=== PATIENT | female | born 1980 | race Caucasian/White ===

== ENCOUNTER 2017-11-15 17:27 | Emergency (ER) | payer OTHER ==
--- OUTSIDE RECORDS SUMMARY | 2017-11-15 17:37 | XMS REPORT ---
:1980 External Reference #:[id number] Author Organization hospitality aide [facility] Address [address] [place] [address] Phone [phone] Care Team Providers Name Role Phone Silva Reyes MD Care Team Information Components Engineer Unavailable Payers Type Date Identification Numbers Payment Provider Subscriber Commercial Policy Number: [id number] Brayan Villagomez PayID: [id number] [address] [place] [address] Problems Description No Information Family History Date Family Member(s) Problem(s) Comments Father due to Liver Cancer () Father Diabetes, Type 2 Father Cirrhosis Mother A&W First Brother A&W Paternal Grandfather due to Stroke () Paternal Grandfather Diabetes, Type 2 Paternal Grandmother Atrial Fibrillation Maternal Grandfather due to Old Age () Maternal Grandfather due to Diabetes () Maternal Grandmother due to Heart Disease () Social History Type Date Description Comments Education Highest level completed, Doctorate Marital Status Single Lives With Alone Diet Healthy, Well Balanced Pets 3 cats Pets 1 dog 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 Cigarette Use Never Smoked Cigarettes ETOH Use Denies alcohol use Smoking Patient has never smoked Recreational Drug Use Denies Drug Use Daily Caffeine Consumes on average 1 soda per day Exercise Type/Frequency Exercises rarely Seat Belt/Car Seat Always uses seat belt Currently Active Patient is currently not sexually active STD's No STD History Allergies, Adverse Reactions, Alerts Date Description Reaction Status Severity Comments 05/28/2017 NKDA active Medications Medication Date Status Form Strength Qnty SIG Indications Ordering Provider Ambien Active Unknown 000 Sumatriptan Active Solution 6mg/0.5ML prn Unknown Succinate 000 Progesterone Active Capsules 100mg take 1 Unknown Micronized 000 capsule at bedtime Levothyroxine 0 Active Tablets 112mcg 1 by Unknown Sodium 000 mouth every day Synthroid /00/0 Hx Unknown 000 - 018 Hydrocodone 0 Hx Unknown Bitartrate/Aceta 000 - minophen 018 Zoloft /0 Hx Unknown 000 - 018 Synthroid 0 Hx Tablets 88mcg 1 by Unknown 000 - mouth every day 018 Medications Administered in Office Medication Date Status Form Strength Qnty SIG Indications Ordering Provider PT SCRN Tbco Administered Injection Phaelon Id as Non User 018 MD Amy Vital Signs Date Vital Result Comment 10/29/2017 BP Systolic 158 mmHg BP Diastolic 102 mmHg Height 64.5 inches 5'4.50" Weight 226.00 lb BMI (Body Mass Index) 38.2 kg/m2 Last Menstrual Period 1024449 0 05/23/2017 BP Systolic 120 mmHg BP Diastolic 80 mmHg Height 64.25 inches 5'4.25" Weight 217.00 lb BMI (Body Mass Index) 37.0 kg/m2 Last Menstrual Period 9785455 0 Parity 0 Results Description No Information Procedures Date CPT Code Description Status 05/23/2017 56324 Injection Intramuscular Or Subcutaneous Completed 05/05/2014 Mammogram Completed Encounters Type Date Location Provider CPT E/M Dx Office Visit 10/29/2017 2:00p [facility] [place] [address] O09.91 Office Visit 05/23/2017 11:44a [facility] Office Stephani Gill CNM 23346 Z31.69 Office Visit 05/23/2017 3:20p [facility] Office Stephani Gill CNM 44271 Z23 Z31.69 Plan of Care Future Appointment(s):12/16/2017 1:30 pm - Ultrasounds at [facility] [id number] 2:00 pm - Adelina Min CNM at [facility] Cnpege8105/23/2017 - Stephani Gill [id number] Encounter for [id number] Encounter for oth general coun and advice on procreationComments:We discussed a consult with one of our physicians with sono to monitor cervical fibroid. At this time you have declined based on exam today but may consider in future. You have imaging from your other providers ([facility] and [facility]) from within 6 months and will have further imaging with Dr Sousa.I encourage you to consider consulting with one of our physicians regarding your previous uterine surgeries and the advisability of a . You have declined this for now but may consider prior to IVF/IUI. On exam I do not see that your cervix is in an unusual position as you were worried about.We will request your records from [facility].You have received a flu shot todayReturn for any problems or if you would like to see one of our physicians as above.
[2017-11-15 18:40] LABS: ABS Basophils 0.1 10^3/ul (0-0.2); ABS Eosinophils 0.1 10^3/ul (0-0.6); ABS Lymphocytes 1.9 10^3/ul (1.0-4.8); ABS Monocytes 0.8 10^3/ul (0-0.8); ABS Neutrophils 8.1 10^3/ul (1.5-7.7); ABS Nucleated RBC 0 10^3/ul; Eosinophil % 0.9 % (0-6); Hematocrit 35 % (35-47); Hemoglobin 11.7 g/dl (12.0-16.0); Mean Corpuscular HGB Conc 34 g/dl (31-36); Mean Corpuscular Hemoglobin 30 pg (27-31); Mean Corpuscular Volume 88 fL (80-97); Mean Platelet Volume 9.3 um3 (7.4-10.4); Nucleated Red Blood Cells % 0.1; Platelet Count 319 10^3/ul (150-450); Red Blood Count 3.97 10^6/ul (4.00-5.40); Red Cell Distribution Width 14 % (10.5-15); White Blood Count 10.9 10^3/ul (3.5-10.8)
[2017-11-15 18:49] LABS: EGFR Non-African American 96.8 (>60)
[2017-11-15 19:05] LABS: Urine Appearance Clear; Urine Blood 3+ (Negative); Urine Color Yellow; Urine Ketones Negative (Negative); Urine Protein Negative (Negative); Urine Red Blood Cell 3+(>10/hpf) (Absent); Urine Specific Gravity 1.019 (1.010-1.030); Urine Urobilinogen Negative (Negative); Urine White Blood Cell Trace(0-5/hpf) (Absent)
--- NOTE | 2017-11-15 19:13 | RAD ---
HISTORY: Vaginal bleeding COMPARISONS: Pelvic ultrasound dated November 15, 2017 TECHNIQUE: Multiple transverse and longitudinal ultrasound images were obtained of the pelvis using grayscale, color flow, spectral and M-mode sonographic imaging. FINDINGS: UTERUS: The uterus is normal in shape, size, contour, and echotexture. GESTATION: There is a single live intrauterine gestation. The crown-rump length measures 1 cm yielding a gestational age of 7 weeks and 1 day. heart rate measures 125 bpm. The mean gestational sac diameter measures 2.1 centimeters yielding a gestational age of 7 weeks and 1 day. There is a subchorionic hemorrhage surrounding approximately three quarters of the gestational sac. There is at least one uterine fibroid identified measuring 5.5 x 7.8 x 7.5 CUL-DE-SAC: There is no free fluid within the cul-de-sac. Neither ovary is visualized. IMPRESSION: 1. Single live intrauterine gestation with a crown-rump length yielding a gestational age of 7 weeks and 1 day. 2. Subchorionic hemorrhage surrounding approximately three quarters of the gestational sac. 3. At least one uterine fibroid is visualized measuring 7.8 cm in greatest dimension.
--- NOTE | 2017-11-15 19:16 | ED ---
- HPI Summary HPI Summary: Patient 6 weeks complains of sudden onset vaginal bleeding involving clots today. Patient is , being followed by a [facility] fertility clinic in [place], and has had no appointment with [facility] yet. Scheduled for appointment at 12 weeks at [place] [facility]. Patient was seen by fertility clinic today with ultrasound which confirmed small subchorionic hemorrhage. Bleeding only spotty at time of ultrasound, now heavy. Patient also complains of lower abdominal cramping left side worse than right. History of 3 fibroids 5 -7 cm. Denies fever, cough, sore throat, CP, SOB, N/V/D, change in urine or BM. Medical history is hypothyroid, fibroids with history of heavy bleeding and transfusions. - History of Current Complaint Chief Complaint: EDOBProblems Stated Complaint: VAGINAL BLEEDING/6 WKS PREG Time Seen by Provider: 11/15/17 17:58 Hx Obtained From: Patient Chief Complaint: Pain, Vaginal Bleeding Onset/Duration: Started Hours Ago Timing: Constant Severity: Moderate Current Severity: Moderate Pain Intensity: 4 Location of Pain: Left Side, Right Side, Suprapubic Character: Cramping Associated Signs and Symptoms: Positive: Vaginal Bleeding or Discharge - Allergies/Home Medications Allergies/Adverse Reactions: Allergies Allergy/AdvReac Type Severity Reaction Status Date / Time No Known Allergies Allergy Verified 11/15/17 18:06 Home Medications: Home Medications NK [No Home Medications Reported] 11/15/17 [History Confirmed 11/15/17] PMH/Surg Hx/FS Hx/Imm Hx Endocrine/Hematology History: Denies: Hx Anticoagulant Therapy History: Denies: Hx Dialysis Neurological History: Denies: Hx CVA Infectious Disease History: No Infectious Disease History: Denies: Traveled Outside the [place] in Last 30 Days - Social History Alcohol Use: None Substance Use Type: Reports: None Smoking Status (MU): Former Smoker Review of Systems Constitutional: Negative Eyes: Negative ENT: Negative Cardiovascular: Negative Respiratory: Negative Positive: Abdominal Pain Positive: other Musculoskeletal: Negative Skin: Negative Neurological: Negative Psychological: Normal All Other Systems Reviewed And Are Negative: Yes Physical Exam - Summary Physical Exam Summary: Tenderness to palpation along the lower abdomen bilaterally. No edema to hands or feet. - Physical Exam Triage Information Reviewed: Yes Vital Signs Reviewed: Yes Appearance: Positive: Well-Appearing Skin: Positive: Warm Head/Face: Positive: Normal Head/Face Inspection Eyes: Positive: Normal Neck: Positive: Supple Respiratory/Lung Sounds: Positive: Clear to Auscultation Cardiovascular: Positive: Normal Abdomen Description: Positive: Other: Musculoskeletal: Positive: Normal Neurological: Positive: Normal Psychiatric: Positive: Normal AVPU Assessment: Alert - [place] Coma Scale Eye: 4 - Spontaneous Motor: 6 - Obeys Commands Verbal: 5 - Oriented Coma Scale Total: 15 Diagnostics - Vital Signs Vital Signs Temp Pulse Resp BP Pulse Ox 11/15/17 18:22 74 142/97 99 11/15/17 18:20 78 151/98 99 11/15/17 18:17 132/81 11/15/17 18:00 77 99 11/15/17 17:53 84 99 11/15/17 17:30 97.7 F 80 18 145/75 100 - Laboratory Lab Results: Lab Results 11/15/17 11/15/17 11/15/17 Range/Units 18:13 18:13 18:13 WBC 10.9 H (3.5-10.8) 10^3/ul RBC 3.97 L (4.00-5.40) 10^6/ul Hgb 11.7 L (12.0-16.0) g/dl Hct 35 (35-47) % MCV 88 (80-97) fL MCH 30 (27-31) pg MCHC 34 (31-36) g/dl RDW 14 (10.5-15) % Plt Count 319 (150-450) 10^3/ul MPV 9.3 (7.4-10.4) um3 Neut % (Auto) 73.9 (38-83) % Lymph % (Auto) 17.0 L (25-47) % [place] % (Auto) 7.4 H (0-7) % Eos % (Auto) 0.9 (0-6) % Baso % (Auto) 0.8 (0-2) % Absolute Neuts (auto) 8.1 H (1.5-7.7) 10^3/ul Absolute Lymphs (auto) 1.9 (1.0-4.8) 10^3/ul Absolute Monos (auto) 0.8 (0-0.8) 10^3/ul Absolute Eos (auto) 0.1 (0-0.6) 10^3/ul Absolute Basos (auto) 0.1 (0-0.2) 10^3/ul Absolute Nucleated RBC 0 10^3/ul Nucleated RBC % 0.1 Sodium 136 (135-145) mmol/L Potassium 3.6 (3.5-5.0) mmol/L Chloride 105 (101-111) mmol/L Carbon Dioxide 24 (22-32) mmol/L Anion Gap 7 (2-11) mmol/L BUN 9 (6-24) mg/dL Creatinine 0.68 (0.51-0.95) mg/dL Est GFR ( Amer) 117.2 (>60) Est GFR (Non-Af Amer) 96.8 (>60) BUN/Creatinine Ratio 13.2 (8-20) Glucose 96 (70-100) mg/dL Calcium 8.7 (8.6-10.3) mg/dL Total Bilirubin 0.10 L (0.2-1.0) mg/dL AST 12 L (13-39) U/L ALT 8 (7-52) U/L Alkaline Phosphatase 76 (34-104) U/L Total Protein 6.4 (6.4-8.9) g/dL Albumin 3.6 (3.2-5.2) g/dL Globulin 2.8 (2-4) g/dL Albumin/Globulin Ratio 1.3 (1-3) Beta HCG, Quant 31399.00 mIU/mL Urine Color Urine Appearance Urine pH (5-9) Ur Specific [place] (1.010-1.030) Urine Protein (Negative) Urine Ketones (Negative) Urine Blood (Negative) Urine Nitrate (Negative) Urine Bilirubin (Negative) Urine Urobilinogen (Negative) Ur Leukocyte Esterase (Negative) Urine WBC (Auto) (Absent) Urine RBC (Auto) (Absent) Urine Bacteria (Absent) Urine Glucose (Negative) Blood Type O Positive 11/15/17 Range/Units 18:36 WBC (3.5-10.8) 10^3/ul RBC (4.00-5.40) 10^6/ul Hgb (12.0-16.0) g/dl Hct (35-47) % MCV (80-97) fL MCH (27-31) pg MCHC (31-36) g/dl RDW (10.5-15) % Plt Count (150-450) 10^3/ul MPV (7.4-10.4) um3 Neut % (Auto) (38-83) % Lymph % (Auto) (25-47) % [place] % (Auto) (0-7) % Eos % (Auto) (0-6) % Baso % (Auto) (0-2) % Absolute Neuts (auto) (1.5-7.7) 10^3/ul Absolute Lymphs (auto) (1.0-4.8) 10^3/ul Absolute Monos (auto) (0-0.8) 10^3/ul Absolute Eos (auto) (0-0.6) 10^3/ul Absolute Basos (auto) (0-0.2) 10^3/ul Absolute Nucleated RBC 10^3/ul Nucleated RBC % Sodium (135-145) mmol/L Potassium (3.5-5.0) mmol/L Chloride (101-111) mmol/L Carbon Dioxide (22-32) mmol/L Anion Gap (2-11) mmol/L BUN (6-24) mg/dL Creatinine (0.51-0.95) mg/dL Est GFR ( Amer) (>60) Est GFR (Non-Af Amer) (>60) BUN/Creatinine Ratio (8-20) Glucose (70-100) mg/dL Calcium (8.6-10.3) mg/dL Total Bilirubin (0.2-1.0) mg/dL AST (13-39) U/L ALT (7-52) U/L Alkaline Phosphatase (34-104) U/L Total Protein (6.4-8.9) g/dL Albumin (3.2-5.2) g/dL Globulin (2-4) g/dL Albumin/Globulin Ratio (1-3) Beta HCG, Quant mIU/mL Urine Color Yellow Urine Appearance Clear Urine pH 7.0 (5-9) Ur Specific [place] 1.019 (1.010-1.030) Urine Protein Negative (Negative) Urine Ketones Negative (Negative) Urine Blood 3+ A (Negative) Urine Nitrate Negative (Negative) Urine Bilirubin Negative (Negative) Urine Urobilinogen Negative (Negative) Ur Leukocyte Esterase Negative (Negative) Urine WBC (Auto) Trace(0-5/hpf) (Absent) Urine RBC (Auto) 3+(>10/hpf) A (Absent) Urine Bacteria Absent (Absent) Urine Glucose Negative (Negative) Blood Type Result Diagrams: 11/15/17 18:13 11/15/17 18:13 Lab Statement: Any lab studies that have been ordered have been reviewed, and results considered in the medical decision making process. - Ultrasound No standard instances Ultrasound Interpretation: Positive (See Comments) - Subchorionic hemorrhage around three quarters of gestational sac. Live intrauterine . Ultrasound Interpretation Completed By: Radiologist Course/Dx - Course Course Of Treatment: Patient 6 weeks complains of sudden onset vaginal bleeding involving clots today. Patient is , being followed by a [facility] fertility clinic in [place], and has had no appointment with [facility] yet. Scheduled for appointment at 12 weeks at [facility]. Patient was seen by fertility clinic today with ultrasound which confirmed small subchorionic hemorrhage. Bleeding only spotty at time of ultrasound, now heavy. Patient also complains of lower abdominal cramping left side worse than right. History of 3 fibroids 5-7 cm. Denies fever, cough, sore throat, CP, SOB, N/V/D, change in urine or BM. Medical history is hypothyroid, fibroids with history of heavy bleeding and transfusions. PE: Tenderness to palpation along the lower abdomen bilaterally. No edema to hands or feet. Vital signs within normal limits. Unstable. Labs unremarkable. Discussed patient with Dr. Flood pet adoption counselor for OB who stated there was nothing that could be done for patient at this time. Still a viable with higher risk of miscarriage. Follow-up with fertility clinic on Friday, return for heavy bleeding. Patient 6 weeks complains of sudden onset vaginal bleeding involving clots today. Patient is , being followed by a fertility clinic, and has had no appointment with [facility] yet. Scheduled for appointment at 12 weeks at [facility]. Patient was seen by fertility clinic today with ultrasound which confirmed small subchorionic hemorrhage. Bleeding only spotty at time of ultrasound, now heavy. Patient also complains of lower abdominal cramping left side worse than right. History of 3 fibroids 5-7 cm. Denies fever, cough, sore throat, CP, SOB, N/V/D, change in urine or BM. Medical history is hypothyroid, fibroids with history of heavy bleeding and transfusions. PE: Tenderness to palpation along the lower abdomen bilaterally. No edema to hands or feet. - Diagnoses Provider Diagnoses: Vaginal bleeding affecting early Discharge - Sign-Out/Discharge Documenting (check all that apply): Patient Departure - Discharge Plan Condition: Stable Disposition: HOME Patient Education Materials: Threatened Miscarriage (ED) Referrals: No Primary Care Phys,NOPCP [Primary Care Provider] - Additional Instructions: Follow-up with your fertility clinic on Friday. Return to the ED for heavy bleeding, or any new or worsening symptoms. - Billing Disposition and Condition Condition: STABLE Disposition: Home
[2017-11-15 20:03] VITALS: BP 151/97
--- NOTE | 2017-11-17 06:53 | PN ---
Progress Note - Progress Note Date of Service: 11/17/17 Note: Patient's urine culture grew Escherichia coli 25-50,000. Not a significant cultures will not treat at this time. Will wait for final culture.
--- NOTE | 2017-11-18 08:44 | ED ---
Progress - Progress Note Progress Note: Patient's final urine culture reveals 25-50,000 Escherichia coli. She was seen for threatened miscarriage with vaginal bleeding and a subchorionic hemorrhage although was still viable. She denies urinary symptoms such as burning, pressure, flank pain, fevers or chills. She has a baseline frequency due to that has not changed. She does not believe she has an active urinary tract infection. We discussed that she is taking steroids for her as she is going to the [place] [facility]. She will follow-up in one week to repeat a UA and monitor her symptoms in the event that she needs to start an antibiotic however we've discussed her options today and decided to avoid antibiotics today (no bacteria, leukocytes or nitrates on U/A, CBC unremarkable for acute infection, no sx, etc). She will continue to transition to [facility] from [facility] for convenience of follow-up (ie. U/S, labs, etc). She is aware she may release her records through medical records as needed however she said [facility] can access her records as of today. She is also aware if she develops heavier bleeding, pain, fever, chills she will return to the emergency department. At this time, she continues to have same flow of vaginal bleeding that she's had since this started. No new complaints. Course/Dx - Course Course Of Treatment: Patient 6 weeks complains of sudden onset vaginal bleeding involving clots today. Patient is , being followed by a [facility] fertility clinic in [place], and has had no appointment with [facility] yet. Scheduled for appointment at 12 weeks at [facility]. Patient was seen by fertility clinic today with ultrasound which confirmed small subchorionic hemorrhage. Bleeding only spotty at time of ultrasound, now heavy. Patient also complains of lower abdominal cramping left side worse than right. History of 3 fibroids 5-7 cm. Denies fever, cough, sore throat, CP, SOB, N/V/D, change in urine or BM. Medical history is hypothyroid, fibroids with history of heavy bleeding and transfusions. PE: Tenderness to palpation along the lower abdomen bilaterally. No edema to hands or feet. Vital signs within normal limits. Unstable. Labs unremarkable. Discussed patient with Dr. Flood hotel yardperson for OB who stated there was nothing that could be done for patient at this time. Still a viable with higher risk of miscarriage. Follow-up with fertility clinic on Friday, return for heavy bleeding. Patient 6 weeks complains of sudden onset vaginal bleeding involving clots today. Patient is , being followed by a fertility clinic, and has had no appointment with [facility] yet. Scheduled for appointment at 12 weeks at [facility]. Patient was seen by fertility clinic today with ultrasound which confirmed small subchorionic hemorrhage. Bleeding only spotty at time of ultrasound, now heavy. Patient also complains of lower abdominal cramping left side worse than right. History of 3 fibroids 5-7 cm. Denies fever, cough, sore throat, CP, SOB, N/V/D, change in urine or BM. Medical history is hypothyroid, fibroids with history of heavy bleeding and transfusions. PE: Tenderness to palpation along the lower abdomen bilaterally. No edema to hands or feet. - Diagnoses Provider Diagnoses: Vaginal bleeding affecting early Discharge - Sign-Out/Discharge Documenting (check all that apply): Post-Discharge Follow Up - Discharge Plan Condition: Stable Disposition: HOME Patient Education Materials: Threatened Miscarriage (ED) Referrals: No Primary Care Phys,NOPCP [Primary Care Provider] - Additional Instructions: Follow-up with your fertility clinic on Friday. Return to the ED for heavy bleeding, or any new or worsening symptoms. - Billing Disposition and Condition Condition: STABLE Disposition: Home
== END 2017-11-15 20:35 | disposition home or self-care (01) ==
LOC: ED 17:27
DX: O46.91 Antepartum hemorrhage, unspecified, first trimester (principal); Z3A.01 Less than 8 weeks gestation of pregnancy; Z87.891 Personal history of nicotine dependence
CPT/HCPCS: 36415; 76817; 80053; 81003; 81015; 84702; 85025; 86900; 86901; 87077; 87086; 87186; 99283

== ENCOUNTER 2017-12-04 20:44 | Emergency (ER) | payer OTHER ==
--- OUTSIDE RECORDS SUMMARY | 2017-12-04 20:55 | XMS REPORT ---
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 Cigarette Use Never [...] Strength Qnty SIG Indications Ordering Provider Ambien / Active Unknown 0000 Sumatriptan / Active Solution 6mg/0.5ML prn Unknown Succinate 0000 Progesterone / Active Capsules 100mg take 1 Unknown Micronized 0000 capsule at bedtime Levothyroxine / Active Tablets 112mcg 1 by Unknown Sodium 0000 mouth every day Macrobid 11/18/ Hx Capsules 100mg 14caps 1 by Adelina 2018 - mouth Min, 11/26/ twice a CNM 2017 Synthroid /00/ Hx Unknown - 2017 Hydrocodone / Hx Unknown Bitartrate/Aceta 0000 - minophen 2017 Zoloft / Hx Unknown - 2017 Synthroid / Hx Tablets 88mcg 1 by Unknown 0000 - mouth 10/13/ every day 2017 Medications Administered in Office Medication Date Status Form Strength Qnty SIG Indications Ordering Provider PT SCRN Tbco Administered Injection Paola Id as Non User 018 JULITO Dockery PT SCRN Tbco Administered Injection Silva Id as Non User 018 MD Amy Vital Signs Date Vital Result Comment 11/27/2017 BP Systolic 112 mmHg BP Diastolic 72 mmHg Height 64.5 inches 5'4.50" Weight 233.00 lb BMI (Body Mass Index) 39.4 kg/m2 Last Menstrual Period 1304241 1 Parity 0 10/29/2017 BP Systolic 158 mmHg BP Diastolic 102 mmHg Height 64.5 inches 5'4.50" Weight 226.00 lb BMI (Body Mass Index) 38.2 kg/m2 Last Menstrual Period 1754276 0 05/23/2017 BP Systolic 120 mmHg BP Diastolic 80 mmHg Height 64.25 inches 5'4.25" Weight 217.00 lb BMI (Body Mass Index) 37.0 kg/m2 Last Menstrual Period 4109962 0 Parity 0 Results Description No Information Procedures Date CPT Code Description Status 11/27/2017 16852 OB Ultrasound First Trimester Completed 05/23/2017 12920 Injection Intramuscular Or Subcutaneous Completed 05/05/2014 Mammogram Completed Encounters Type Date Location Provider CPT E/M Dx Office Visit 11/27/2017 2:20p [facility] Paola Dockery CNM 25789 O20.8 Office Visit 10/29/2017 2:00p [place] [address] O09.91 Office Visit 05/23/2017 11:44a [facility] Stephani Gill CNM 22065 Z31.69 Office Visit 05/23/2017 3:20p [facility] Stephani Gill CNM 74682 Z23 Z31.69 Plan of Care Future Appointment(s):12/09/2017 3:30 pm - Laboratory at [facility]12/16/2017 1:30 pm - Ultrasounds at [facility]12/16/2017 2:00 pm - Adelina Min CNM at [facility]
[2017-12-04] MEDS ORDERED: Morphine INJ* 2 MG/ML 1 ML SYRINGE (TWO MG - NEW SYRINGE VERSION) IV ONE (23:01)
[2017-12-04] MEDS ORDERED: Metoclopramide IV* 5 MG/ML 2 ML VIAL IV SLOW PU ONE (23:02)
--- NOTE | 2017-12-04 23:05 | ED ---
Abdominal Pain/Female - HPI Summary HPI Summary: This is clare Alvarez documenting for attending Elodia Reyes MD. This patient is a 52 year old F presenting to ED with a chief complaint of suprapubic abdominal pain since yesterday. This is the patients 1st and is currently 9 weeks. The CC is described as constant, non-radiating, and worsened since onset. The patient rates the pain 8/10 in severity. Symptoms aggravated by nothing. Symptoms alleviated by nothing. Patient reports hematuria for 3 weeks (was heavy but now is about 4-5 pads a day). Patient denies fever. US done at fertility clinic in [place] yesterday and fetus is fine. She sees the [facility]. She had an I.O.I. done. PMHx of fibroids ( had multiple surgeries in the past to have them removed). - History of Current Complaint Chief Complaint: EDOBProblems Stated Complaint: 9WKS PREG ABD PAIN Time Seen by Provider: 12/04/17 22:38 Hx Obtained From: Patient Onset/Duration: Sudden Onset, Lasting Days - since yesterday, Still Present, Worse Since - onset Timing: Constant Severity Initially: Severe Severity Currently: Severe Pain Intensity: 8 Pain Scale Used: 0-10 Numeric Location: Suprapubic Radiates: No Aggravating Factor(s): Nothing Alleviating Factor(s): Nothing Associated Signs and Symptoms: Positive: Other: - Patient reports hematuria for 3 weeks (was heavy but now is about 4-5 pads a day). Patient denies fever. Allergies/Adverse Reactions: Allergies Allergy/AdvReac Type Severity Reaction Status Date / Time No Known Allergies Allergy Verified 11/15/17 18:06 Home Medications: Home Medications Levothyroxine TAB* [Synthroid TAB*] 112 mcg PO DAILY 12/05/17 [History Confirmed 12/05/17] Progesterone SUPP (NF) [Endometrin SUPP (NF)] 100 mg SC BID 12/05/17 [History Confirmed 12/05/17] predniSONE [Prednisone 5 MG TAB] 5 mg PO DAILY 12/05/17 [History Confirmed 12/05] PMH/Surg Hx/FS Hx/Imm Hx Endocrine/Hematology History: Denies: Hx Anticoagulant Therapy History: Denies: Hx Dialysis Neurological History: Denies: Hx CVA Infectious Disease History: Yes Infectious Disease History: Denies: Traveled Outside the [place] in Last 30 Days - Family History Known Family History: Positive: Hypertension, Diabetes - Social History Alcohol Use: None Substance Use Type: Reports: None Smoking Status (MU): Former Smoker Review of Systems Negative: Fever Positive: Abdominal Pain - suprapubic abdominal pain Positive: hematuria - Patient reports hematuria for 3 weeks (was heavy but now is about 4-5 pads a day). All Other Systems Reviewed And Are Negative: Yes Physical Exam - Summary Physical Exam Summary: VITAL SIGNS: Reviewed. GENERAL: Patient is a well-developed and nourished FEMALE who is lying comfortable in the stretcher. Patient is not in any acute respiratory distress. HEAD AND FACE: No signs of trauma. No ecchymosis, hematomas or skull depressions. No sinus tenderness. EYES: PERRLA, EOMI x 2, No injected conjunctiva, no nystagmus. EARS: Hearing grossly intact. Ear canals and tympanic membranes are within normal limits. MOUTH: Oropharynx within normal limits. NECK: Supple, trachea is midline, no adenopathy, no JVD, no carotid bruit, no c- spine tenderness, neck with full ROM. CHEST: Symmetric, no tenderness at palpation LUNGS: Clear to auscultation bilaterally. No wheezing or crackles. CVS: Regular rate and rhythm, S1 and S2 present, no murmurs or gallops appreciated. ABDOMEN: Soft, suprapubic tenderness. No signs of distention. No rebound no guarding, and no masses palpated. Bowel sounds are normal. EXTREMITIES: FROM in all major joints, no edema, no cyanosis or clubbing. NEURO: Alert and oriented x 3. No acute neurological deficits. Speech is normal and follows commands. SKIN: Dry and warm Triage Information Reviewed: Yes Vital Signs On Initial Exam: Initial Vitals Temp Pulse Resp BP Pulse Ox 98.3 F 94 18 149/106 99 12/04/17 20:44 12/04/17 20:44 12/04/17 20:44 12/04/17 20:44 12/04/17 20:44 Vital Signs Reviewed: Yes Diagnostics - Vital Signs Vital Signs Temp Pulse Resp BP Pulse Ox 12/04/17 20:44 98.3 F 94 18 149/106 99 - Laboratory Result Diagrams: 12/04/17 23:10 12/04/17 23:10 Lab Statement: Any lab studies that have been ordered have been reviewed, and results considered in the medical decision making process. - Ultrasound No standard instances Ultrasound Interpretation Completed By: Radiologist - US transvaginal reveals 1. There is a single living intrauterine of sonographic gestational age 9 weeks 3 days, KATIE July [birth year] 2018. 2. No visible subchorionic hemorrhage. 3. There are multiple intramural uterine fibroids presents, in the lower uterine segment measuring a maximum of 5.8 cm, posterior body of the uterus measuring of 5.7 cm and in the right body of uterus measuring a maximum of 6.2 cm. ED physician has reviewed this radiology report. Re-Evaluation - Re-Evaluation First Eval Re-Evaluation Time: 01:16 Comment: Discussed results with the patient. Abdominal Pain Fem Course/Dx - Course Course Of Treatment: This patient is a 37 yo female with hx of fibroids. A0. She is 9 weeks . She comes in the ED with abdominal pain since a couple days ago that has worsened over time. She was told by her PCP to come to the ED. On the physical exam, she had epigastric tenderness. The US showed she was 9 weeks . I discussed the case with Dr. Reyes who said she can be discharged home with pain medications. She was discharged with Percocet. Patient understands and agrees. - Diagnoses Provider Diagnoses: Uterine fibroid in - Provider Notifications Discussed Care Of Patient With: Silva Reyes Time Discussed With Above Provider: 01:18 Instructed by Provider To: Other - Consulted Dr. Reyes who says that the pain could be secondary to the degeneration change in the fibroids. As long as the baby is okay, then the patient can be D/C with instructions to follow up with OB. Discharge - Sign-Out/Discharge Documenting (check all that apply): Patient Departure - Discharge Plan Condition: Stable Disposition: HOME Prescriptions: oxyCODONE/Acetamin 5/325 MG* [Percocet 5/325 TAB*] 1 tab PO Q6H PRN #14 tab MDD 4 PRN Reason: Pain Patient Education Materials: Abdominal Pain in (ED) Referrals: Silva Reyes MD [Medical Doctor] - (Follow up with Dr. Reyes in 1-2 days.) Additional Instructions: RETURN TO THE EMERGENCY DEPARTMENT FOR CHANGING OR WORSENING SYMPTOMS.
[2017-12-04 23:20] LABS: ABS Basophils 0.1 10^3/ul (0-0.2); ABS Eosinophils 0.1 10^3/ul (0-0.6); ABS Lymphocytes 2.3 10^3/ul (1.0-4.8); ABS Monocytes 1.1 10^3/ul (0-0.8); ABS Neutrophils 11.1 10^3/ul (1.5-7.7); ABS Nucleated RBC 0 10^3/ul; Eosinophil % 0.4 % (0-6); Hematocrit 34 % (35-47); Hemoglobin 11.1 g/dl (12.0-16.0); Lymphocyte % 15.5 % (25-47); Mean Corpuscular HGB Conc 33 g/dl (31-36); Mean Corpuscular Hemoglobin 28 pg (27-31); Mean Corpuscular Volume 86 fL (80-97); Mean Platelet Volume 8.5 um3 (7.4-10.4); Nucleated Red Blood Cells % 0.1; Platelet Count 367 10^3/ul (150-450); Red Blood Count 3.91 10^6/ul (4.00-5.40); Red Cell Distribution Width 14 % (10.5-15); White Blood Count 14.6 10^3/ul (3.5-10.8)
[2017-12-04 23:37] LABS: EGFR Non-African American 118.7 (>60)
[2017-12-05 02:04] VITALS: BP 142/75
--- NOTE | 2017-12-05 07:45 | RAD ---
INDICATION: , vaginal bleeding. COMPARISON: Comparison is made with prior study from November 15, 2017. TECHNIQUE: Multiple real-time transvaginal images of the pelvis were obtained. FINDINGS: This exam demonstrates an early intrauterine . A yolk sac and fetus are visualized. The heart rate was 170 beats per minute. The crown-rump length measured 2.47 cm corresponding to an estimated gestational age of 9 weeks 2 days. The mean sac diameter measured 3.83 cm corresponding to an estimate gestational age of 9 weeks 3 days. The gestational age by the prior sonogram would be 9 weeks 6 days. No subchorionic hemorrhage is seen. The right ovary measured 3.6 x 2.1 x 2.9 cm. The left ovary measured 3.5 x 3.2 x 3.0 cm. There is vascular flow within both ovaries. The uterus is enlarged measuring 16.3 x 8.8 x 13.2 cm. There are several fibroids present. In the lower uterine segment there is a 5.8 x 4.3 x 5.1 cm fibroid. In the posterior body of the uterus there is a 5.7 x 5.3 x 4.8 cm fibroid. In the body of the uterus on the right side there is a 6.2 x 5.2 x 5.2 cm fibroid. No free intraperitoneal fluid is seen. IMPRESSION: 1. EARLY INTRAUTERINE WITH AN ESTIMATED GESTATIONAL AGE OF 9 WEEKS 3 DAYS. 2. ENLARGED UTERUS WITH MULTIPLE LEIOMYOMAS.
== END 2017-12-05 02:03 | disposition home or self-care (01) ==
LOC: ED 20:44
DX: O34.11 Maternal care for benign tumor of corpus uteri, first trimester (principal); D25.9 Leiomyoma of uterus, unspecified; Z3A.09 9 weeks gestation of pregnancy; Z87.42 Personal history of other diseases of the female genital tract; Z87.891 Personal history of nicotine dependence
CPT/HCPCS: 36415; 76801; 80053; 84702; 85025; 86850; 86870; 86880; 86900; 86901; 96374; 96375; 99282; J2270; J2765